=== PATIENT | male | born 1985 | race Caucasian/White ===

== ENCOUNTER → 2018-03-01 | Outpatient (CLI) | payer OTHER | LOC: COL.VAS 10:45 | DX: R06.02 Shortness of breath (principal) ==

== ENCOUNTER → 2019-11-07 | Outpatient (CLI) | payer OTHER | LOC: COL.VAS 12:11 | DX: I26.99 Other pulmonary embolism without acute cor pulmonale (principal); I34.0 Nonrheumatic mitral (valve) insufficiency; I51.7 Cardiomegaly ==